=== PATIENT | male | born 1955 | race Caucasian/White ===

== ENCOUNTER 2023-11-27 10:09 | Outpatient (REF) | payer MEDICARE, OTHER, SELFPAY ==
--- NOTE | ~2023-11-27 | XR_ITS ---
EXAMINATION: XR KNEE, RIGHT CLINICAL INFORMATION: Pain COMPARISON: None available. TECHNIQUE: Three views of the right knee. FINDINGS: Right total knee replacement has been performed. Prosthetic components appear appropriately positioned without evidence of loosening or failure. No joint effusion, fracture or dislocation. Bony densities anterior and posterior knee joint on lateral view. Underlying demineralization. Vascular calcifications. XR/XR knee RT 3V IMPRESSION: Right total knee replacement. No acute bony pathology. Electronically signed by: Karly Kuhn MD 12/25/2023 09:18 AM EDT
--- NOTE | ~2023-11-27 | XR_ITS ---
EXAMINATION: XR KNEE, LEFT CLINICAL INFORMATION: Left knee pain COMPARISON: None available. TECHNIQUE: 3 views of the left knee. FINDINGS: Left total knee replacements prosthetic components are appropriately positioned without evidence of loosening or failure. Small suprapatellar effusion. No fracture or dislocation. Suprapatellar are bony densities are identified. Bones are demineralized. Vascular calcification seen. XR/XR knee LT 3V IMPRESSION: Left total knee replacement. Suprapatellar effusion. No acute bony pathology. Electronically signed by: Karly Kuhn MD 12/25/2023 11:24 AM EDT
== END 2023-11-27 10:10 | disposition home or self-care (01) ==
LOC: HO.HOSX 10:09
PROVIDERS: Visit Provider Orthopaedic Surgery
DX: M25.561 Pain in right knee (principal); M25.562 Pain in left knee; Z96.653 Presence of artificial knee joint, bilateral; M25.462 Effusion, left knee
CPT/HCPCS: 73562; 99202

== ENCOUNTER 2023-11-27 14:40 | Outpatient (AMB) | payer OTHER, BC, SELFPAY ==
--- NOTE | 2023-11-27 14:54 | MHC.OFFVIS ---
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 The patient states the aggravated his knees several weeks ago when he fell while mowing his lawn. He denies any other injuries. He denies any locking or giving way. The patient states that he ?tripped over a stump?. He does not take any medicines for his discomfort. Most of the discomfort is along the medial aspects of his knees. Allergies iv contrast dye Allergy (Uncoded 11/27/23 14:58) body shakes Medication List - Last Reconciled 11/27/23 by Alexys Felix MD alogliptin 25 mg PO DAILY atorvastatin 80 mg PO DAILY bupropion HCl XL 300 mg PO QAM empagliflozin 25 mg PO DAILY sacubitril-valsartan 97-103 mg (Entresto) 1 tab PO BID sitagliptin 100 mg PO DAILY tamsulosin 0.4 mg PO DAILY PFSH Surgical History (Updated 11/27/23 @ 15:01 by GORDO Peres) History of bilateral knee replacement History of permanent cardiac pacemaker placement Hx of foot surgery Social History (Updated 11/27/23 @ 15:02 by GORDO Peres) Patient Tobacco Use Status: Former Tobacco user Current occupational status: retired Current occupation: maintenance department technician flower delivery Physical Exam Const Other: Well-nourished well-developed very friendly male awake alert and oriented x3 in no acute distress Extrem Other: Bilateral lower extremity examination shows good capillary refill, no skin lesions noted, normal sensation light touch Bilateral knee examination shows that the surgical incisions are well healed, no erythema, full active extension and flexion to 120 degrees, his patellae track well, mild tenderness over his medial collateral ligaments, no instability Results Reviewed Results Reviewed: X-rays of the patient's bilateral knee show total knee arthroplasties in good position with no signs of loosening, no acute bony abnormalities Assessment & Plan Assessment & Plan (1) Right knee pain: Code(s): M25.561 - Pain in right knee Category: Medical (2) Left knee pain: Code(s): M25.562 - Pain in left knee Category: Medical Plan Mr. Pang continues to do well after undergoing bilateral total knee replacement surgeries in spite of his recent fall. His discomfort is most likely due to sprain of his medial collateral ligaments. Activity modifications were discussed at length with the patient. He does know to take antibiotics before any dental work. He will contact me prior to his follow-up appointment in 3 months should his symptoms worsen in any way. Feel free to call me at any time should questions regarding his orthopedic management arise. I spent 21 minutes in reviewing the patient's records and imaging studies, seeing the patient and documenting in the medical record. Orders: Orders XR knee LT 3V Today M25.562 - Pain in left knee XR knee RT 3V Today M25.561 - Pain in right knee Coding Level of Care Code New Pt Level 3 (20133) Diagnoses Right knee pain M25.561 Left knee pain M25.562
== END 2023-11-27 15:17 | disposition home or self-care (01) ==
LOC: HO.HOS 14:40
PROVIDERS: PCP Family Medicine; Visit Provider Orthopaedic Surgery
DX: M25.561 Pain in right knee (principal); M25.562 Pain in left knee; Z96.653 Presence of artificial knee joint, bilateral; W19.XXXA Unspecified fall, initial encounter
CPT/HCPCS: 99203

== ENCOUNTER 2024-02-26 14:45 | Outpatient (AMB) | payer OTHER, MEDICARE, SELFPAY ==
--- NOTE | 2024-02-26 14:58 | MHC.OFFVIS ---
Vital Signs 02/26/24 15:04 Height 6 ft 3 in Weight 273 lb BMI 34.1 Intake Visit Reasons: Bilateral knee discomfort Intake Note: Isaac a 68 year old male who presents with complaints of mild intermittent discomfort in both of his knees after undergoing bilateral total knee replacement surgeries. He denies any fevers or chills. He does not take any medicines for his discomfort. He continues with his home exercise program. Allergies iv contrast dye Allergy (Uncoded 02/26/24 15:00) body shakes Medication List - Last Reconciled 02/26/24 by Alexys Felix MD alogliptin 25 mg PO DAILY atorvastatin 80 mg PO DAILY bupropion HCl XL 300 mg PO QAM empagliflozin 25 mg PO DAILY metformin ER 750 mg PO BID metoprolol succinate ER 50 mg PO DAILY sacubitril-valsartan 97-103 mg (Entresto) 1 tab PO BID sitagliptin 100 mg PO DAILY tamsulosin 0.4 mg PO DAILY [facility] Surgical History History of bilateral knee replacement History of permanent cardiac pacemaker placement Hx of foot surgery Social History Patient Tobacco Use Status: Former Tobacco user Current occupational status: retired 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 Physical Exam Vital Signs: BMI result Body Mass Index 34.1 Const Other: Well-nourished well-developed very friendly male awake alert and oriented x3 in no acute distress Extrem Other: Bilateral lower extremity examination shows good capillary refill, no skin lesions noted, normal sensation light touch Bilateral knee examination shows that the surgical incisions are well healed, no erythema, full active extension and flexion to 120 degrees, his patellae track well Assessment & Plan Assessment & Plan (1) Right knee pain: Code(s): M25.561 - Pain in right knee Category: Medical (2) Left knee pain: Code(s): M25.562 - Pain in left knee Category: Medical Plan Mr. Pang continues to do well after undergoing bilateral total knee replacement surgeries. He will continue with his physical therapy exercises. He does know to take antibiotics before any dental work. He will contact me prior to his annual follow-up appointment should any questions or concerns arise. Feel free to call me at any time should questions regarding his orthopedic management arise. I spent 20 minutes in reviewing the patient's records and imaging studies, seeing the patient and documenting in the medical record. Coding Level of Care Code Est Pt Level 3 (15061) Complex EM visit Add On G2211 Diagnoses Right knee pain M25.561 Left knee pain M25.562
[2024-02-26 15:04] VITALS: BMI 34.1
== END 2024-02-26 15:18 | disposition home or self-care (01) ==
LOC: HO.HOS 14:45
PROVIDERS: PCP Family Medicine; Visit Provider Orthopaedic Surgery
DX: M25.561 Pain in right knee (principal); M25.562 Pain in left knee
CPT/HCPCS: 99213; G2211

== ENCOUNTER → 2024-02-26 14:45 | Outpatient (BNVA) | payer OTHER, SELFPAY | PROVIDERS: PCP Family Medicine; Visit Provider Orthopaedic Surgery | DX: M25.561 Pain in right knee (principal); M25.562 Pain in left knee; Z96.653 Presence of artificial knee joint, bilateral | CPT/HCPCS: 99212 ==